=== PATIENT | female | born 1940 | race Caucasian/White ===

== ENCOUNTER 2017-02-17 07:16 | Outpatient (CLI) | payer MEDICARE, BC | END 2017-02-17 07:17 | disposition home or self-care (01) | LOC: BICMAMMO 07:16 | PROVIDERS: ATTEND Family Medicine | DX: Z12.31 Encounter for screening mammogram for malignant neoplasm of breast (principal) | CPT/HCPCS: 77063; G0202; 77067 ==

== ENCOUNTER 2018-02-18 08:34 | Outpatient (CLI) | payer MEDICARE, BC | END 2018-02-18 08:35 | disposition home or self-care (01) | LOC: BICMAMMO 08:34 | PROVIDERS: ATTEND Family Medicine | DX: Z12.31 Encounter for screening mammogram for malignant neoplasm of breast (principal) | CPT/HCPCS: 77063; 77067 ==

== ENCOUNTER 2018-03-08 20:27 | Observation (INO) | payer MEDICARE, BC ==
[2018-03-08 20:49] LABS: #Basophils 0.1 thou/uL (0.0-0.2); #Eosinphils 0.3 thou/uL (0.0-0.7); #Lymphocytes 3.7 thou/uL (1.20-3.40); #Monocytes 0.7 thou/uL (0.11-0.59); #Neutrophils 4.3 thou/uL (1.40-6.50); %Eosinophils 3.1 % (0.0-10.0); %Lymphocytes 40.9 % (21.0-51.0); %Monocytes 7.6 % (0.0-10.0); %Neutrophils 47.4 % (42.0-75.0); Hemoglobin 15.8 g/dL (12.0-16.0); Mean Corpuscular HGB CONC 35.7 g/dL (32.0-36.0); Mean Corpuscular Hemoglobin 33.2 pg (27.0-31.0); Mean Corpuscular Volume 93.1 fL (78.0-98.0); Mean Platelet Volume 6.7 fL (7.4-10.4); Platelet Count 212 thou/uL (130-400); RBC Distribution Width 11.9 % (11.5-14.5); Red Blood Cell (RBC) Count 4.74 mill/uL (4.20-5.40)
[2018-03-08 21:18] LABS: ALT (SGPT) 40 U/L (8-55); AST (SGOT) 29 U/L (5-34); Albumin 4.7 g/dL (3.4-4.8); Alkaline Phosphatase 89 U/L (40-150); Anion Gap 18 mmol/L (10-20); BUN (Urea Nitrogen) 14 mg/dL (9.8-20.1); Bilirubin, Total 0.5 mg/dL (0.2-1.2); CK (CPK) 101 U/L (29-168); Calc. Creatinine Clearance 0 mL/min (70-130); Calcium 10.3 mg/dL (7.8-10.44); Carbon Dioxide 23 mmol/L (23-31); Chloride 101 mmol/L (98-107); Estimated GFR-MDRD 53; Globulin 3.5 g/dL (2.4-3.5); Glucose 123 mg/dL (83-110); Potassium 3.6 mmol/L (3.5-5.1); Protein, Total 8.2 g/dL (6.0-8.3); Sodium 138 mmol/L (136-145)
--- NOTE | 2018-03-08 22:00 | RAD ---
CHEST ONE VIEW: 03/08/18 HISTORY: 77-year-old female with history of chest pain and hypertension. COMPARISON: 10/06/13. FINDINGS: Monitor leads overlie the chest. Heart size is within normal limits. The lungs are clear. IMPRESSION: No significant acute intrathoracic disease. POS: [facility]
[2018-03-08] MEDS ORDERED: Nitroglycerin 0.4 MG TAB (25 Tab Bottle) ONE (22:08)
[2018-03-08] MEDS ORDERED: Atropine Sulfate 1 mg/10 ml Syringe ONE (22:19)
[2018-03-08] MEDS ORDERED: Ondansetron PF 4 MG/2 ML Vial ONE (22:21)
[2018-03-08] MEDS ORDERED: Acetaminophen 325 MG TAB PO PRN (23:36)
[2018-03-08] MEDS ORDERED: Ondansetron ODT 4 MG TAB SL PRN (23:36)
[2018-03-08] MEDS ORDERED: Ondansetron PF 4 MG/2 ML Vial IVP PRN (23:36)
[2018-03-09] MEDS ORDERED: Morphine 4 MG/ML VIAL IV PRN (00:14)
[2018-03-09] MEDS ORDERED: Lorazepam 0.5 MG TAB PO SCH (00:15)
[2018-03-09 00:18] LABS: Troponin I Less than 0.010 ng/mL (< 0.028)
[2018-03-09 00:37] VITALS: BMI 29.3
[2018-03-09 03:20] LABS: Troponin I Less than 0.010 ng/mL (< 0.028)
[2018-03-09] MEDS: Atorvastatin Calcium 10 MG TAB PO SCH (08:46)
[2018-03-09] MEDS: Acetaminophen 500 MG TAB PO SCH ×4 (08:46→20:38)
[2018-03-09] MEDS: Enoxaparin Sodium 40 MG/0.4 ML SYRINGE SC SCH (08:47)
[2018-03-09] MEDS ORDERED: Aspirin 325 mg Enteric Coated Tablet PO SCH (09:00)
--- NOTE | 2018-03-09 10:25 | HP ---
HISTORY OF PRESENT ILLNESS: This 77-year-old female, who presents with chest pain. The patient has a history of hypertension, hyperlipidemia, arthritis, who has seen multiple analysis tester. Yesterday, on the day of admission, she was sitting at home at her table checking her blood pressure and was found to be elevated and she developed chest pain. She became diaphoretic. The chest pain was nonradiating. One week ago, she had seen DEBBIE Beaver and was diagnosed with a viral bronchitis. Her and have been coughing for the past week. She is much better at this time, but she complains of persistent substernal chest pain, nonradiating, sensitive to touch and with movement. No associated nausea, vomiting, or radiation. Her cardiac enzymes were found to be unremarkable. PAST MEDICAL HISTORY: Includes hypertension, hyperlipidemia, diverticulosis, aortic aneurysm. PAST SURGICAL HISTORY: Includes hysterectomy, Cardiolite stress test normal in 2008 and 2013, cataract surgery. FAMILY HISTORY: Father with abdominal aortic aneurysm and diabetes. Mother with hypertension. SOCIAL HISTORY: She is . She has one son and one daughter. 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 MEDICATIONS: Include; 1. Losartan 100 daily. 2. Aspirin 81 daily. 3. B12 daily. 4. Tylenol p.r.n. 5. Vitamin D3 daily. 6. Lorazepam 0.5 at bedtime p.r.n. 7. Bisoprolol-hydrochlorothiazide 5-6.25 p.o. q.a.m. 8. Lipitor 10 on Wednesday, Wednesday, Wednesday. ALLERGIES: TO SULFA AND LATEX. REVIEW OF SYSTEMS: As above. PHYSICAL EXAMINATION: VITAL SIGNS: Temp 98.5, pulse 75, respirations 16, pulse ox 94%, blood pressure 120/58. GENERAL: No acute distress at this time, however, she does complain of tender chest wall. HEENT: Clear. HEART: Regular rate and rhythm. LUNGS: Clear. ABDOMEN: Soft. EXTREMITIES: With no edema. LABORATORY DATA: Electrolytes normal. Creatinine 1.01, BUN 14, glucose 123. Troponin less than 0.010 x3. BNP 37. White count 9.0, H and H 15 and 44. EKG with normal sinus rhythm, unremarkable. ASSESSMENT: 1. Chest pain, more than likely chest wall in nature. Tender to the touch and with movement. However, considering patient's age, history of hypertension and hyperlipidemia, she is at risk. 2. Hypertension. 3. Hyperlipidemia. 4. History of small abdominal aortic aneurysm. PLAN: 1. Echo. 2. Cardiolite stress. 3. Consult Dr. Flores. 4. We will continue to follow. Job ID: [id number]
[2018-03-09] MEDS ORDERED: Atropine Sulfate 1 mg/10 ml Syringe ONE (15:00)
--- NOTE | 2018-03-09 16:07 | CON ---
DATE OF CONSULTATION: HISTORY OF PRESENT ILLNESS: Marcy Flores is a 77-year-old female, who has been followed by numerous laborer general in the past, most recent of which has been Dr. Melendez. In October 2013, she was admitted with chest discomfort and evaluated by Dr. Giraldo and underwent a Cardiolite scan, which was normal. She then was followed by Dr. Mo in March 2016, underwent Lexiscan Cardiolite testing. She was found to have anterolateral and apical moderate ischemia. Cardiac catheterization was recommended; however, she has followed up with a physician in [place] and that was never performed. In May 2017, she was seen by Dr. Melendez. She was essentially asymptomatic at that visit. Ms. Flores states that recently her blood pressure has been difficult to control. Yesterday, she had a blood pressure of 198/112 and began to notice a central chest pressure that was not pleuritic in nature. She did not have any nausea, vomiting, or diaphoresis. She always seems to have mild shortness of breath. She ultimately came to the emergency room, was given sublingual nitroglycerin, apparently had a drop in her blood pressure. She states that the pain lasted continuously for approximately 2 hours. Her cardiac enzymes have been normal. PAST MEDICAL HISTORY: Hypertension and hypercholesterolemia. She develops muscle pains with statins. She states that she has an abdominal aortic aneurysm and has had two small strokes. She has diverticulosis. PAST SURGICAL HISTORY: Hysterectomy and cataract surgery. MEDICATIONS: 1. Aspirin 81 mg daily. 2. Vitamin B12 daily. 3. Losartan 100 mg daily. 4. Vitamin D3. 5. Lorazepam 0.5 mg p.r.n. 6. Bisoprolol-hydrochlorothiazide 5-6.25 q.a.m. 7. Lipitor 10 on Wednesday, Wednesday, and Wednesday only. ALLERGIES: SULFA AND LATEX. SOCIAL HISTORY: She does not smoke or drink. She is a retired teacher. REVIEW OF SYSTEMS: A 12-point review of systems is otherwise unremarkable. PHYSICAL EXAMINATION: VITAL SIGNS: Blood pressure 135/60 and pulse of 68. HEENT: PERRL. NECK: Supple. CHEST: Clear. CARDIAC: S1 and S2 normal without any S3, S4, or murmurs. Carotid upstroke is normal without bruits. ABDOMEN: Normal bowel sounds without tenderness. EXTREMITIES: Revealed no clubbing, cyanosis, or edema. NEUROLOGIC: Grossly intact. SKIN: Warm and dry. MUSCULOSKELETAL: Revealed some palpable chest wall tenderness just to the left of the mid sternum; however, she states that this was not quite the same type of discomfort that brought her to the emergency room. LABORATORY DATA AND IMAGING DATA: EKG revealed normal sinus rhythm with nonspecific ST-segment changes. In the emergency room, she was given sublingual nitroglycerin at 2212 hours and an another EKG at 2219 hours showed junctional rhythm with a rate of 29 per minute. She was then given atropine 0.5 mg IV and EKG then showed sinus tachycardia with a rate of 121 per minute. She apparently was alert and talking during the entire time. CBC is unremarkable. Sodium 138, potassium 3.6, chloride 101, carbon dioxide 23, BUN 14, creatinine 1.01. Glucose 123. Cardiac enzymes x3 are normal. IMPRESSION: 1. Prolonged episode of chest discomfort with normal cardiac enzymes. 2. Abnormal Cardiolite scan in March of 2016 with finding of moderate ischemia of the anterolateral and apical no. Apparently, she never had a catheterization after that. 3. Hypertension. 4. Hyperlipidemia. 5. Myalgias with statins, although she is taking atorvastatin three times per week. 6. Obesity. 7. History of abdominal aortic aneurysm according to the patient. 8. History of small strokes. PLAN: Situation discussed with the patient. We went over the available options. The first is to not undergo any further evaluation. The second would be to repeat the Cardiolite scan; however, if it is normal, then that raises question of which scanning test is correct with the one being abnormal in March 2016. Overall, it was recommended that she undergo cardiac catheterization to clarify this. Risks of catheterization were discussed including , myocardial infarction, dye reaction, vascular injury, CVA, transfusion, limb loss, renal loss, etc. Risk of stent placement discussed including , myocardial infarction, emergent CABG, restenosis, stent thrombosis, vessel perforation, etc. However, she has opted to undergo repeat Cardiolite scan and that will be scheduled. Job ID: [id number]
[2018-03-09] MEDS: Lorazepam 0.5 MG TAB PO PRN (20:38)
[2018-03-10] MEDS: Acetaminophen 500 MG TAB PO SCH ×6 (03:38→20:42)
--- NOTE | 2018-03-10 08:44 | PDOC.CTH ---
Cardiology Progress Note - Subjective The pt seen and examined. No overnight events. She cont having discomfort to her MS area with fatigue with mild exertion. - Objective Vital Signs Temp Pulse Resp BP BP Pulse Ox 03/10/18 07:46 97.7 F 66 18 130/64 96 03/10/18 03:30 98.0 F 86 18 111/55 L 98 Weight 170 lb 14.4 oz 03/09/18 03/10/18 03/11/18 06:59 06:59 06:59 Intake Total 240 1200 Output Total 200 1625 Balance 40 -425 - Physical Examination General/Neuro: alert & oriented x3 Neck: no JVD present Lungs: CTA Heart: RRR Abdomen: soft Extremities: other: (No edema) - Telemetry Telemetry Rhythm: SR - Labs Result Diagrams: 03/08/18 20:37 03/08/18 20:37 Troponin/CKMB Troponin I Less than 0.010 ng/mL (< 0.028) 03/09/18 02:49 - Assessment/Plan 1. Chest pain with fatigue - The pt cont. complaining of fatigue with mild exertion and discomfort to MS area. Also sharp pain to Lt lateral wall of chest with palpitation. Plan for stress test today. If abnormal, she would like to tx to her tobacco cutter in [place] for further cardiac evaluation. On ASA 325mg qd, BBlocker, and Statin. 2. HTN - stable with Metoprolol 3. Hx of SVT - her tele record has showed no arrhythemias 4. Hyperlipidemia - on Lipitor 10mg qd 5. Hx of AAA with small dissection - cont. to monitor 6. Hx of CVA MAR reviewed * Echo on 03/09/18 showed EF 60-65%, diastolic dysfunction, mildly dilated LA, mild TR, and mild MR. Pt. seen and eval. by me. I agree with the A/P by the ETL ARCHITECT. The stress test is negative for ischemia. Chest clear. RRR. No edema. From a cardiac standpoint she could be d/c'd at any time. She can f/u in the office in 2-4 weks or continue to f/u with the tobacco cutter in [place]. Review of Systems - Review of Systems Constitutional: reports: see HPI EENTM: reports: no symptoms reported Respiratory: reports: no symptoms reported Cardiac (ROS): reports: see HPI ABD/GI: reports: no symptoms reported : reports: no symptoms reported Musculoskeletal: reports: no symptoms reported
[2018-03-10] MEDS: Enoxaparin Sodium 40 MG/0.4 ML SYRINGE SC SCH (10:05)
--- NOTE | 2018-03-10 10:15 | CON ---
DATE OF CONSULTATION: 03/10/2018 SUBJECTIVE: No complaints of chest pain, nausea, vomiting, or shortness of breath today. Awaiting second part of the stress test. OBJECTIVE: VITAL SIGNS: Temp 97.6, pulse 66, respirations 18, pulse ox 96, blood pressure 130/64. HEART: Regular rate and rhythm. LUNGS: Clear. ABDOMEN: Soft. EXTREMITIES: With no edema. LABORATORY DATA: Labs none. ASSESSMENT: 1. Chest pain, rule out myocardial infarction. 2. Hypertension. 3. Hyperlipidemia. 4. Bronchitis, has a persistent cough over the past three weeks. 5. History of abdominal aortic aneurysm. PLAN: 1. Complete portion of stress of Cardiolite today with possible discharge. 2. Begin antibiotics for persistent bronchitis. 3. Possible discharge today. Job ID: [id number]
[2018-03-10] MEDS ORDERED: ADENOSINE 60 MG/20 ML VIAL ONE (10:52)
[2018-03-10] MEDS: Atorvastatin Calcium 10 MG TAB PO SCH (12:16)
--- NOTE | 2018-03-10 14:08 | NM ---
MYOCARDIAL PERFUSION EVALUATION: COMPARISON: 10/06/2013. CLINICAL HISTORY: Chest pain. RADIOPHARMACEUTICAL: 31 mCi Technetium 99m sestamibi IV and 28.6 mCi Technetium 99m sestamibi IV. Administered at stress a nd rest. FINDINGS: Reference stress EKG portion of the exam through the division of cardiology for further details. There is no significant perfusion defect of the left ventricular no. Gated imaging reveals wall m otion and contractility with a normal LVEF calculated above 80%. IMPRESSION: 1. No evidence of ischemia or scar. 2. Normal left ventricular systolic function. POS: [facility]
[2018-03-10] MEDS: Lorazepam 0.5 MG TAB PO PRN (20:42)
[2018-03-11] MEDS: Acetaminophen 500 MG TAB PO SCH ×4 (01:34→12:54)
[2018-03-11] MEDS: Atorvastatin Calcium 10 MG TAB PO SCH (08:04)
[2018-03-11] MEDS: Enoxaparin Sodium 40 MG/0.4 ML SYRINGE SC SCH (08:04)
[2018-03-11 11:56] VITALS: BP 138/69; TEMP 98
--- NOTE | 2018-03-11 12:06 | PDOC.CTH ---
Cardiology Progress Note - Subjective The pt seen and examined. No overnight events. No cardiac complaints. She is ready to d/c home. - Objective Vital Signs Temp Pulse Resp BP BP Pulse Ox 03/11/18 11:55 98.0 F 72 20 138/69 94 L 03/11/18 08:00 98.9 F 60 16 125/58 L 92 L 03/11/18 04:25 97.9 F 62 17 126/59 L 95 Weight 170 lb 14.4 oz 03/10/18 03/11/18 03/12/18 06:59 06:59 06:59 Intake Total 1200 1200 Output Total 1625 400 Balance -425 800 - Physical Examination General/Neuro: alert & oriented x3 Neck: no JVD present Lungs: CTA Heart: RRR Abdomen: soft Extremities: other: (No edema) - Telemetry Telemetry Rhythm: SR 70s - Labs Result Diagrams: 03/08/18 20:37 03/08/18 20:37 Troponin/CKMB Troponin I Less than 0.010 ng/mL (< 0.028) 03/09/18 02:49 - Assessment/Plan 1. Chest pain with fatigue - Denied any CP or fatigue today. Stress test on 05/2018 showed normal with EF 80%. On ASA 325mg qd, BBlocker, and Statin. 2. HTN - stable with Metoprolol 3. Hx of SVT - her tele record has showed no arrhythemias 4. Hyperlipidemia - on Lipitor 10mg qd 5. Hx of AAA with small dissection - cont. to monitor 6. Hx of CVA MAR reviewed * Echo on 03/09/18 showed EF 60-65%, diastolic dysfunction, mildly dilated LA, mild TR, and mild MR. * From a cardiac standpoint she could be d/c'd at any time. She can f/u in the office in 2-4 weks or continue to f/u with the communications attendant in [place]. Review of Systems - Review of Systems Constitutional: reports: no symptoms reported EENTM: reports: no symptoms reported Respiratory: reports: no symptoms reported Cardiac (ROS): reports: no symptoms reported ABD/GI: reports: no symptoms reported : reports: no symptoms reported Musculoskeletal: reports: no symptoms reported Skin: reports: no symptoms reported
--- NOTE | 2018-03-12 04:24 | DIS ---
DATE OF ADMISSION: 03/08/2018 DATE OF DISCHARGE: 03/11/2018 DISCHARGE DIAGNOSES: 1. Chest pain. 2. Chest wall pain. 3. Bronchitis. 4. Hypertension. 5. Hyperlipidemia. 6. History of abdominal aortic aneurysm. DISCHARGE MEDICATIONS: 1. Ziac 5/6.25 p.o. q.a.m. 2. Cipro 250 p.o. b.i.d. 3. Lodine 200 b.i.d. p.r.n. 4. Losartan 50 p.o. at bedtime. 5. Lipitor 10 daily. 6. Aspirin 81 daily. 7. Allopurinol 300 daily. FOLLOWUP: Follow up in [address] Chriss Hi. Follow up with Cardiology in [place]. BRIEF HISTORY: This is a 77-year-old Latin-[place] female who presented with chest pain. The patient had a 2-week history of an upper respiratory infection with persistent cough. She came in and complaining of left-sided chest pain with no radiation. No nausea or vomiting. She just felt bad. At home, she noted her blood pressure to be elevated. She was therefore, admitted for further evaluation. She has been followed by getter operator in [place]. HOSPITAL COURSE: An echocardiogram was found to be unremarkable. A Cardiolite stress test was also unremarkable. The patient's blood pressures have fluctuated somewhat. She did not tolerate the present regimen of antihypertensives. She will be discharged home on her routine home medications as above. She will follow up in the office in 1 week. The patient was offered a cardiac catheterization; however, she declined this. She wants to get this done in [place]. She is aware that the cardiac catheterization is the primary test to evaluate for coronary artery disease. She was started on Levaquin and changed to Cipro for her bronchitis, which is somewhat improved. She has not been coughing as much. The patient will be discharged and follow up in 1 week. Job ID: [id number]
--- NOTE | 2018-03-19 20:30 | EKG ---
Test Reason : Blood Pressure : / mmHG Vent. Rate : 095 BPM Atrial Rate : 095 BPM P-R Int : 128 ms QRS Dur : 074 ms QT Int : 350 ms P-R-T Axes : 058 -06 -13 degrees QTc Int : 439 ms Normal sinus rhythm Nonspecific ST abnormality Abnormal ECG Confirmed by HARESH CUMMINS MD ([id number]), news copy editor WILFREDO BARRON ([id number]) on 03/19/2018 8:29:53 PM Referred By: Confirmed By:HARESH CUMMINS MD
--- NOTE | 2018-03-19 20:30 | EKG ---
Test Reason : Blood Pressure : / mmHG Vent. Rate : 029 BPM Atrial Rate : 033 BPM P-R Int : 000 ms QRS Dur : 100 ms QT Int : 476 ms P-R-T Axes : 000 002 018 degrees QTc Int : 330 ms Junctional bradycardia Abnormal ECG Confirmed by MARIA G HUANG, HARESH ([id number]), continuity editor WILFREDO BARRON ([id number]) on 03/19/2018 8:29:53 PM Referred By: Confirmed By:HARESH CUMMINS MD
--- NOTE | 2018-03-19 20:30 | EKG ---
Test Reason : Blood Pressure : / mmHG Vent. Rate : 121 BPM Atrial Rate : 121 BPM P-R Int : 126 ms QRS Dur : 074 ms QT Int : 342 ms P-R-T Axes : 028 -08 -09 degrees QTc Int : 485 ms Sinus tachycardia Cannot rule out Anterior infarct , age undetermined Abnormal ECG Confirmed by MARIA G HUANG, HARESH ([id number]), order editor WILFREDO BARRON ([id number]) on 03/19/2018 8:29:54 PM Referred By: Confirmed By:HARESH CUMMINS MD
== END 2018-03-11 14:58 | disposition home or self-care (01) ==
LOC: ERS 20:27 → 2SW 22:09
PROVIDERS: ADMIT Family Medicine; ATTEND Family Medicine
DX: R07.89 Other chest pain (principal); E78.5 Hyperlipidemia, unspecified; J40 Bronchitis, not specified as acute or chronic; M19.90 Unspecified osteoarthritis, unspecified site; I10 Essential (primary) hypertension; E78.00 Pure hypercholesterolemia, unspecified; I71.4 Abdominal aortic aneurysm, without rupture; E66.9 Obesity, unspecified; Z68.29 Body mass index [BMI] 29.0-29.9, adult; Z86.73 Personal history of transient ischemic attack (TIA), and cerebral infarction without residual deficits; Z79.82 Long term (current) use of aspirin; Z79.899 Other long term (current) drug therapy; Z88.2 Allergy status to sulfonamides; Z88.8 Allergy status to other drugs, medicaments and biological substances; Z91.040 Latex allergy status
CPT/HCPCS: 71045; 78452; 80053; 82550; 83880; 84484 ×3; 85025; 93005; 93017; 93306; 94760; 96361; 96374; 96375; 99285; A9500; G0378 ×2; 36415; J0153; J0461; J1650; J2405

== ENCOUNTER 2019-04-28 10:30 | Outpatient (CLI) | payer MEDICARE, BC ==
--- NOTE | 2019-04-28 10:56 | ULT ---
ULTRASOUND ABDOMEN: HISTORY: Abdominal pain FINDINGS: The liver, spleen, pancreas, kidneys and visualized portions of the aorta and IVC appear normal. The common duct measures 8mm in diameter. No free fluid is seen. There are multiple shadowing gallstones without gallbladder wall thickening or pericholecystic fluid. IMPRESSION: Cholelithiasis.
== END 2019-04-28 10:31 | disposition home or self-care (01) ==
LOC: BICULT 10:30
PROVIDERS: ATTEND Physician Assistant Medical
DX: R10.84 Generalized abdominal pain (principal); K80.20 Calculus of gallbladder without cholecystitis without obstruction
CPT/HCPCS: 36415; 80061; 80076; 82043; 82947; 83036; 93975

== ENCOUNTER 2019-08-30 08:32 | Outpatient (CLI) | payer MEDICARE, BC ==
--- NOTE | 2019-08-30 09:56 | MMO ---
Bilateral MAMMO Bilat Screen [facility]. CLINICAL HISTORY: Patient is 78 years old and is seen for screening. The patient has no family history of breast cancer. The patient has no personal history of cancer. VIEWS: The views performed were: bilateral craniocaudal with tomosynthesis and bilateral mediolateral oblique with tomosynthesis. FILMS COMPARED: The present examination has been compared to prior imaging studies performed at [facility] on 02/15/2015, 02/17/2016, 02/17/2017 and 02/18/2018. This study has been interpreted with the assistance of computer-aided detection. MAMMOGRAM FINDINGS: There are scattered fibroglandular densities. There are stable benign appearing calcifications seen in both breasts. Nodularity is stable. There are no suspicious masses, suspicious calcifications, or new areas of architectural distortion. IMPRESSION: THERE IS NO MAMMOGRAPHIC EVIDENCE OF MALIGNANCY. A ROUTINE FOLLOW-UP MAMMOGRAM IN 1 YEAR IS RECOMMENDED. THE RESULTS OF THIS EXAM WERE SENT TO THE PATIENT. ACR BI-RADS Category 2 - Benign finding MAMMOGRAPHY NOTE: 1. A negative mammogram report should not delay a biopsy if a dominant of clinically suspicious mass is present. 2. Approximately 10% to 15% of breast cancers are not detected by mammography. 3. Adenosis and dense breasts may obscure an underlying neoplasm. Reported by: JERRI RIZZO MD Electonically Signed: [id number]
== END 2019-08-30 08:33 | disposition home or self-care (01) ==
LOC: BICMAMMO 08:32
PROVIDERS: ATTEND Family Medicine
DX: Z12.31 Encounter for screening mammogram for malignant neoplasm of breast (principal)
CPT/HCPCS: 36415; 77063; 77067; 80061; 80076; 82043; 82947; 83036

== ENCOUNTER 2019-10-11 05:35 | Emergency (ER) | payer MEDICARE, BC ==
[2019-10-11] MEDS ORDERED: Ketorolac Tromethamine 30 MG/ML VIAL ONE (06:11)
[2019-10-11 06:32] LABS: #Basophils 0.1 thou/uL (0.0-0.2); #Eosinphils 0.1 thou/uL (0.0-0.7); #Lymphocytes 1.8 thou/uL (1.20-3.40); #Monocytes 0.4 thou/uL (0.11-0.59); #Neutrophils 5.3 thou/uL (1.40-6.50); %Basophils 0.7 % (0.0-1.0); %Eosinophils 1.8 % (0.0-10.0); %Lymphocytes 23.3 % (21.0-51.0); %Monocytes 5.3 % (0.0-10.0); %Neutrophils 68.9 % (42.0-75.0); Hemoglobin 14.2 g/dL (12.0-16.0); Mean Corpuscular Hemoglobin 30.9 pg (27.0-31.0); Mean Corpuscular Volume 93.6 fL (78.0-98.0); Mean Platelet Volume 7.4 fL (7.4-10.4); Platelet Count 240 thou/uL (130-400); RBC Distribution Width 12.3 % (11.5-14.5); Red Blood Cell (RBC) Count 4.59 mill/uL (4.20-5.40); White Blood Cell (WBC) Count 7.7 thou/uL (4.8-10.8)
[2019-10-11 07:55] LABS: Albumin 4.7 g/dL (3.4-4.8)
[2019-10-11 07:56] LABS: Bilirubin Negative (Negative); Blood, Urine Negative (Negative); Clarity Clear (Clear); Glucose, Urine (Dipstick) Normal (Negative); Ketone, Urine Negative (Negative); Leukocyte Negative Leu/uL (Negative); Nitrite Negative (Negative); Protein, Urine (Dipstick) Negative (Neg-Trace); Urobilinogen Normal mg/dL (Less than 2)
[2019-10-11 07:57] LABS: Glucose 125 mg/dL (83-110)
[2019-10-11 07:58] LABS: Globulin 3.2 g/dL (2.4-3.5); Protein, Total 7.9 g/dL (6.0-8.3)
[2019-10-11 07:59] LABS: Carbon Dioxide 24 mmol/L (23-31)
[2019-10-11 08:00] LABS: Alkaline Phosphatase 93 U/L (40-110)
[2019-10-11 08:01] LABS: Calc. Creatinine Clearance 0 mL/min (70-130); Estimated GFR-MDRD 56
[2019-10-11 08:02] LABS: BUN (Urea Nitrogen) 19 mg/dL (9.8-20.1)
[2019-10-11 08:03] LABS: ALT (SGPT) 11 U/L (8-55); AST (SGOT) 12 U/L (5-34)
[2019-10-11 08:04] LABS: Lipase 37 U/L (8-78)
[2019-10-11 08:15] LABS: Potassium 4.4 mmol/L (3.5-5.1)
[2019-10-11 08:17] LABS: Anion Gap 13 mmol/L (10-20)
[2019-10-11 08:18] LABS: Bilirubin, Total 0.4 mg/dL (0.2-1.2); Calcium 10.5 mg/dL (7.8-10.44)
[2019-10-11 08:19] LABS: Chloride 103 mmol/L (98-107); Sodium 136 mmol/L (136-145)
--- NOTE | 2019-10-11 08:19 | RAD ---
Exam: XR Hip Rt 2-3 View HISTORY: Right-sided hip pain. Back pain. COMPARISON: None FINDINGS: No acute fracture, dislocation, or other acute osseous abnormality is identified. IMPRESSION: No acute osseous abnormality is identified. If patient continues to have pain, MRI right hip may be h elpful for further evaluation
--- NOTE | 2019-10-11 08:53 | CT ---
CT ABDOMEN WITH CONTRAST CT PELVIS WITH CONTRAST: DATE: 10/11/2019 HISTORY: 78-year-old female with severe right lower abdominal and flank pain. COMPARISON: 06/06/2010 TECHNIQUE: IV injection of iodinated contrast media: administered. Oral contrast media:Not administered FINDINGS: Levoscoliosis with apex of curvature at approximately L2-3. No compression fracture of lumbar spine. Lung bases: Grossly clear. Gallbladder: Minimally distended. No signs of acute cholecystitis. Common duct dilated, but unchanged since 2010. Liver: Normal. Spleen: Normal. Pancreas: No major pathology. Adrenals: Right side normal. Left side small nodule unchanged. Kidneys: No pyelonephritis, hydronephrosis, or neoplastic tumor. No moderate sized cyst. Abdominal aorta: Atherosclerotic calcific patient without aneurysm. Large intestine: Large number of diverticula throughout transverse, descending, and sigmoid colon. Qu estionable new mild fat stranding adjacent to sigmoid colon. No abscess. Small intestine: Nondilated. Ascites: None Appendix: Not visualized. Pneumoperitoneum: None Bony pelvis: No fracture. Urinary bladder: Currently empty. IMPRESSION: 1) pancolonic diverticulosis. 2) questionable mild sigmoid colonic diverticulitis. 3) lumbar levoscoliosis. 4) no hydronephrosis.
[2019-10-11] MEDS ORDERED: Iopamidol-370 76% 500 ML 1 ML ONE (15:08)
== END 2019-10-11 09:40 | disposition home or self-care (01) ==
LOC: ERS 05:35
DX: K57.32 Diverticulitis of large intestine without perforation or abscess without bleeding (principal); E78.5 Hyperlipidemia, unspecified; I10 Essential (primary) hypertension; Z86.73 Personal history of transient ischemic attack (TIA), and cerebral infarction without residual deficits; F41.9 Anxiety disorder, unspecified; Z79.899 Other long term (current) drug therapy; Z79.82 Long term (current) use of aspirin
CPT/HCPCS: 36415; 74177; 80053; 81003; 83690; 85025; 96374; J1885; Q9967

== ENCOUNTER 2020-08-30 08:21 | Outpatient (CLI) | payer MEDICARE, OTHER | END 2020-08-30 08:22 | disposition home or self-care (01) | LOC: BICMAMMO 08:21 | PROVIDERS: ATTEND Family Medicine | DX: Z12.31 Encounter for screening mammogram for malignant neoplasm of breast (principal) | CPT/HCPCS: 77063; 77067 ==

== ENCOUNTER 2022-04-02 15:02 | Outpatient (CLI) | payer MEDICARE, OTHER | END 2022-04-02 15:03 | disposition home or self-care (01) | LOC: BICMAMMO 15:02 | PROVIDERS: ATTEND Family Medicine | DX: Z12.31 Encounter for screening mammogram for malignant neoplasm of breast (principal) | CPT/HCPCS: 77063; 77067 ==

== ENCOUNTER 2022-12-24 07:59 | Outpatient (CLI) | payer MEDICARE, OTHER | END 2022-12-24 08:00 | disposition home or self-care (01) | LOC: BICCT 07:59 | PROVIDERS: ATTEND Family Medicine | DX: R10.11 Right upper quadrant pain (principal); K80.20 Calculus of gallbladder without cholecystitis without obstruction | CPT/HCPCS: 74150 ==

== ENCOUNTER 2023-02-08 09:06 | Outpatient (CLI) | payer MEDICARE, OTHER ==
[2023-02-08 09:58] LABS: #Basophils 0.1 10x3/uL (0.0-0.2); #Eosinphils 0.2 10x3/uL (0.0-0.5); #Monocytes 0.9 10x3/uL (0.0-1.1); #Neutrophils 7.1 10x3/uL (1.5-8.4); %Basophils 0.8 % (0.0-2.0); %Eosinophils 1.5 % (0.0-6.0); %Lymphocytes 20.4 % (18.0-47.0); %Monocytes 8.3 % (0.0-10.0); %Neutrophils 68.6 % (40.0-75.0); Hematocrit 47.2 % (34.9-44.5); Hemoglobin 16.2 g/dL (12.0-15.5); Mean Corpuscular HGB CONC 34.3 g/dL (32.0-36.0); Mean Corpuscular Hemoglobin 31.5 pg (27.0-33.0); Mean Corpuscular Volume 91.7 fl (81.6-98.3); Mean Platelet Volume 9.8 fl (7.4-10.4); Platelet Count 220 10x3/uL (150-450); Red Blood Cell (RBC) Count 5.15 10x6/uL (3.90-5.03); White Blood Cell (WBC) Count 10.3 10x3/uL (3.5-10.5)
[2023-02-08 10:36] LABS: ALT (SGPT) 12 U/L (8-55); AST (SGOT) 10 U/L (5-34); Albumin 4.5 g/dL (3.4-4.8); Alkaline Phosphatase 78 U/L (40-110); Anion Gap 17 mmol/L (10-20); BUN (Urea Nitrogen) 21 mg/dL (9.8-20.1); Bilirubin, Direct 0.3 mg/dL (0.1-0.3); Bilirubin, Total 0.7 mg/dL (0.2-1.2); Calc. Creatinine Clearance 0 mL/min (70-130); Calcium 9.8 mg/dL (7.8-10.44); Carbon Dioxide 21 mmol/L (23-31); Chloride 107 mmol/L (98-107); Estimated GFR 59; Glucose 100 mg/dL (83-110); Potassium 3.9 mmol/L (3.5-5.1); Protein, Total 7.5 g/dL (5.8-8.1); Sodium 141 mmol/L (136-145)
== END 2023-02-08 09:07 | disposition home or self-care (01) ==
LOC: LABBT 09:06
PROVIDERS: ATTEND Surgery
DX: Z01.812 Encounter for preprocedural laboratory examination (principal); K80.20 Calculus of gallbladder without cholecystitis without obstruction
CPT/HCPCS: 80053; 80076; 85025

== ENCOUNTER 2023-02-19 09:48 | Outpatient (CLI) | payer MEDICARE, OTHER | END 2023-02-19 09:49 | disposition home or self-care (01) | LOC: BICMAMMO 09:48 | PROVIDERS: ATTEND Family Medicine | DX: N64.4 Mastodynia (principal) | CPT/HCPCS: 76642; 77066; G0279 ==

== ENCOUNTER 2023-02-24 08:44 | Day surgery (SDC) | payer MEDICARE, OTHER ==
[2023-02-08 10:12] VITALS: BMI 29.2
[2023-02-24] MEDS ORDERED: Famotidine/PF 20 mg/2ml Vial ONE (09:46)
[2023-02-24] MEDS ORDERED: Sodium Chloride 0.9% 100 ML ONE (09:46)
[2023-02-24] MEDS ORDERED: cefOXitin 2 GM VIAL ONE (09:47)
[2023-02-24] MEDS ORDERED: PROPOFOL 20 ML ONE (10:37)
[2023-02-24] MEDS ORDERED: Fentanyl 250 MCG/5 ML VIAL ONE (10:37)
[2023-02-24] MEDS ORDERED: Rocuronium Bromide 10 MG/ML (10ML VIAL) ONE (10:38)
[2023-02-24] MEDS ORDERED: EPINEPHrine 1 MG/ML VIAL ONE (10:50)
[2023-02-24] MEDS ORDERED: Bupivacaine 0.25% HCL 30 ML VIAL ONE (10:50)
[2023-02-24] MEDS ORDERED: Lidocaine 2% PF 5 ML VIAL ONE (11:06)
[2023-02-24] MEDS ORDERED: SUGAMMADEX SODIUM 200 MG/2 ML VIAL ONE ×2 (11:06→12:02)
[2023-02-24] MEDS ORDERED: Lidocaine 1% PF 5 ML VIAL ONE (11:51)
[2023-02-24] MEDS ORDERED: PHENYLEPHRINE-NS 100 MCG/ML 10 ML SYRINGE ONE (12:02)
[2023-02-24] MEDS ORDERED: Dexamethasone 4 mg/ml Vial ONE (12:10)
[2023-02-24] MEDS ORDERED: Ketorolac Tromethamine 30 MG/ML VIAL ONE (12:42)
[2023-02-24] MEDS ORDERED: Ondansetron PF 4 MG/2 ML Vial ONE (12:42)
== END 2023-02-24 15:22 | disposition home or self-care (01) ==
LOC: SDC 08:44
PROVIDERS: ATTEND Surgery
PROC: 0FT44ZZ Resection of Gallbladder, Percutaneous Endoscopic Approach (ICD-10-PCS; principal; 2023-02-24)
DX: K80.10 Calculus of gallbladder with chronic cholecystitis without obstruction (principal); K82.8 Other specified diseases of gallbladder; I10 Essential (primary) hypertension; E78.5 Hyperlipidemia, unspecified; I25.10 Atherosclerotic heart disease of native coronary artery without angina pectoris; J61 Pneumoconiosis due to asbestos and other mineral fibers; E11.9 Type 2 diabetes mellitus without complications; Z90.710 Acquired absence of both cervix and uterus; Z79.899 Other long term (current) drug therapy; Z79.82 Long term (current) use of aspirin; Z79.84 Long term (current) use of oral hypoglycemic drugs
CPT/HCPCS: 47562; J0171; 88304; J0694; J1100; J1885; J2001; J2405; J2704; J3010; J3490; S0020; S0028

== ENCOUNTER 2023-09-17 11:18 | Outpatient (CLI) | payer MEDICARE, OTHER | END 2023-09-17 11:19 | disposition home or self-care (01) | LOC: BICRAD 11:18 | PROVIDERS: ATTEND Family Medicine | DX: J18.9 Pneumonia, unspecified organism (principal) | CPT/HCPCS: 71046 ==